=== PATIENT | female | born 1990 | race Asian ===

== ENCOUNTER 2021-05-20 04:39 | Inpatient (IN) ==
[2021-05-20] MEDS ORDERED: OXYTOCIN 30 UNITS/500 ML BAG IV PRN ×3 (05:34→15:18)
[2021-05-20] MEDS ORDERED: ePHEDrine sulfate 50 MG/ML AMP ONE (05:46)
[2021-05-20] MEDS ORDERED: SODIUM CHLORIDE 0.9% INJ 10 ML VIAL ONE (05:46)
[2021-05-20] MEDS ORDERED: BUPIVACAINE 0.25% 30 ML VIAL ONE (05:46)
[2021-05-20] MEDS ORDERED: fentaNYL citrate 100 MCG/2 ML VIAL ONE (05:46)
[2021-05-20] MEDS ORDERED: fentaNYL 2MCG/ML ROPIVACAINE 1.25MG/ML 100 ML BAG EPI ONE (05:47)
[2021-05-20] MEDS: LACTATED RINGER'S 1,000 ML IV PRN ×2 (06:00→07:04)
[2021-05-20 06:05] LABS: Hematocrit (blood only) 40.9 % (37-47); Hemoglobin 13.9 g/dL (12.0-16.0); Mean Corpuscular Hemoglobin 29.8 pg (25-34); Mean Corpuscular Volume 87.6 fL (80-100); Mean Platelet Volume 11.7 fL (7.4-10.4); Platelet Count 172 K/uL (130-400); RDW Coefficient of Variation 13.7 % (11.5-14.5); RDW Standard Deviation 43.8 fL (36.4-46.3); Red Blood Count 4.67 M/uL (4.2-5.4); White Blood Count 16.73 K/uL (4.8-10.8)
--- NOTE | 2021-05-20 07:21 | Anesthesiology Consultation ---
Date of Service May 20, 2021 Assessment & Plan Chart Review Chart Review: Patient NOT seen in Pre Admission Testing and Acceptable Risk for Labor Epidural Consults Requested none Proposed Anesthesia Risk / Benefits Reviewed With: PT / POA / Parent / Guardian, Accepts Plan and Informed Consent Obtained History Height/Weight Height: 5 ft 4 in Weight: 73.482 kg Allergies Allergy/AdvReac Type Severity Reaction Status Date / Time No Known Allergies Allergy Verified 05/20/21 05:03 Medications Home Medications Medication Instructions Recorded Confirmed Last Taken prenat.vits,louie,snc-ksbe-jpakh 1 tab PO DAILY 09/30/20 05/20/21 05/19/21 acetone (urine) test (Ketone Urine #50 ea 03/27/21 05/15/21 Unknown Test) blood sugar diagnostic (OneTouch #150 ea 03/27/21 05/15/21 Unknown Verio test strips) blood-glucose meter (OneTouch #1 ea 03/27/21 05/15/21 Unknown Verio Flex meter) lancets 33 gauge (OneTouch Delica #150 ea 03/27/21 05/15/21 Unknown Plus Lancet) Active Medications Generic Name Dose Route Start Last Admin Trade Name Freq PRN Reason Stop Dose Admin Lactated Ringer's 1,000 mls @ 125 mls/hr 05/20/21 05:34 05/20/21 07:04 Lr IV 05/22/21 05:33 125 mls/hr .Q8H PRN Administration L&D Protocol Protocol Past Medical History Medical History (Updated 05/20/21 @ 04:43 by Ada Howell RN) History of pituitary tumor was taking cabergoline - stopped with positive preg test follows with tom elam Past Family History Family History (Updated 09/30/20 @ 13:17 by Vanessa Mcneal, LUCILA) Mother Hypertension Father , age 38 Stomach cancer Colorectal cancer Brother Congenital heart disease Denies family history of Ovarian cancer Breast cancer Past Surgical History Surgical History (Updated 09/30/20 @ 13:48 by Vanessa Mcneal, RN) No pertinent past surgical history Social History Smoking Status: Never smoker Hx Alcohol Use: Yes Hx Substance Use: No Physical Exam Vital Signs Last Vital Signs Temp 36.6 C 05/20/21 05:06 Pulse 82 05/20/21 07:19 Resp 18 05/20/21 05:06 BP 101/60 05/20/21 07:19 Pulse Ox 100 05/20/21 07:19 Testing Laboratory Results 05/20/21 05:43
[2021-05-20] MEDS ORDERED: NALBUPHINE HCL INJ 10 MG/ML AMP IV PRN (07:31)
[2021-05-20] MEDS ORDERED: diphenhydrAMINE 50 MG/ML VIAL IV PRN (07:31)
[2021-05-20] MEDS ORDERED: NALOXONE HCL 1 MG in SODIUM CHLORIDE 0.9% 1000ML 1,000 ML IV PRN (07:31)
[2021-05-20] MEDS ORDERED: fentaNYL 2MCG/ML ROPIVACAINE 1.25MG/ML 100 ML BAG EPI PRN (07:31)
[2021-05-20] MEDS ORDERED: NALOXONE HCL 0.4 MG/1 ML VIAL/CARP IV PRN (07:31)
[2021-05-20] MEDS ORDERED: ePHEDrine sulfate 50 MG/ML AMP IV PRN (07:31)
--- NOTE | 2021-05-20 08:51 | Labor Progress Brief Note ---
Date of Service May 20, 2021 Subjective Comfortable w/ epidural. Admitted overnight by provider communications billing analyst for labor, aware that I am now taking over Assessment & Plan (1) : Plan: 31 y/o G1 at 38 4/7 wga admitted in labor VSS Fetus cat 1 Labor - nice progression, now s/p arom GBS neg Epidural in place Physical Exam Genitourinary: Manual OB Exam: + cervical dilation (5-6), + cervical effacement 90%, + station -1 and + amniotic fluid (AROM clear ) OB Exam Monitor Tracing: + external FHT monitor used, + external uterine monitor used (q5) and + category I (145/mod/+accel/-decel) Results & Data ([facility]) Vital Signs (Past 12 Hours) Vital Signs Temp Pulse Resp BP Pulse Ox 05/20/21 08:44 96 H 100 05/20/21 08:39 94 H 100 05/20/21 08:37 91 H 122/70 05/20/21 08:34 96 H 99 05/20/21 08:29 104 H 100 05/20/21 08:24 99 H 100 05/20/21 08:20 20 05/20/21 08:19 94 H 100 05/20/21 08:15 96 H 132/90 05/20/21 08:14 99 H 100 05/20/21 08:10 90 100/60 05/20/21 08:09 97 H 100 05/20/21 08:05 20 05/20/21 08:04 84 103/57 L 98 05/20/21 07:59 84 104/55 L 99 05/20/21 07:55 80 103/59 L 05/20/21 07:54 82 99 05/20/21 07:50 20 05/20/21 07:49 91 H 100/57 L 100 05/20/21 07:45 80 99/61 L 05/20/21 07:44 82 99 05/20/21 07:40 81 106/74 05/20/21 07:39 99 H 99 05/20/21 07:35 20 05/20/21 07:34 89 101/59 L 99 05/20/21 07:30 83 105/59 L 05/20/21 07:29 92 H 99 05/20/21 07:24 85 99 05/20/21 07:23 88 97/56 L 05/20/21 07:21 88 99/59 L 05/20/21 07:20 98.1 F 20 05/20/21 07:19 82 101/60 100 05/20/21 07:18 76 91/55 L 05/20/21 07:16 78 90/60 L 05/20/21 07:14 80 98/54 L 99 05/20/21 07:12 84 108/53 L 05/20/21 07:10 89 113/61 05/20/21 07:09 76 98 05/20/21 07:07 82 110/64 05/20/21 07:04 88 100 05/20/21 06:59 89 100 05/20/21 06:54 87 100 05/20/21 06:50 100 H 124/81 05/20/21 06:49 101 H 99 05/20/21 06:44 80 100 05/20/21 05:06 97.9 F 18 05/20/21 04:59 97.9 F 77 18 112/71 Coding Level of Care Code None Diagnoses Z34.90
--- NOTE | 2021-05-20 11:06 | Labor Progress Brief Note ---
Date of Service May 20, 2021 Subjective Comfortable with epidural, ctx some what spaced out Assessment & Plan (1) : Plan: 31 y/o G1 at 38 4/7 wga admitted in labor VSS Fetus cat 1 Labor - nice progression even despite irregularity of ctx. Discussed starting pit just to make more regular when pushing and pt amenable GBS neg Epidural in place Admission and Anticipated Discharge Date Admission Date: May 20, 2021 Physical Exam Genitourinary: Manual OB Exam: + cervical dilation 8 cm, + cervical effacement 90% and + station 0 OB Exam Monitor Tracing: + external FHT monitor used, + external uterine monitor used (q2-6) and + category I (145/mod/+accel/-decel) Results & Data ([facility]) Vital Signs (Past 12 Hours) Vital Signs Temp Pulse Resp BP Pulse Ox 05/20/21 10:59 87 100 05/20/21 10:54 92 H 100 05/20/21 10:49 94 H 98/58 L 97 05/20/21 10:44 90 100 05/20/21 10:39 86 100 05/20/21 10:34 88 104/62 100 05/20/21 10:29 88 99 05/20/21 10:24 87 100 05/20/21 10:19 89 100/59 L 100 05/20/21 10:14 87 100 05/20/21 10:09 87 100 05/20/21 10:06 90 103/56 L 05/20/21 10:05 98.8 F 20 05/20/21 10:04 91 H 100 05/20/21 09:59 84 100 05/20/21 09:54 85 100 05/20/21 09:50 20 05/20/21 09:49 102 H 105/67 99 05/20/21 09:44 94 H 100 05/20/21 09:39 97 H 99 05/20/21 09:35 89 20 116/74 05/20/21 09:34 93 H 99 05/20/21 09:29 91 H 99 05/20/21 09:24 95 H 99 05/20/21 09:20 20 05/20/21 09:19 95 H 119/85 100 05/20/21 09:14 98 H 99 05/20/21 09:09 103 H 100 05/20/21 09:05 20 05/20/21 09:04 92 H 115/81 99 05/20/21 08:59 91 H 100 05/20/21 08:54 94 H 100 05/20/21 08:50 98.6 F 20 05/20/21 08:49 93 H 125/79 100 05/20/21 08:44 96 H 100 05/20/21 08:39 94 H 100 05/20/21 08:37 91 H 122/70 05/20/21 08:35 20 05/20/21 08:34 96 H 99 05/20/21 08:29 104 H 100 05/20/21 08:24 99 H 100 05/20/21 08:20 20 05/20/21 08:19 94 H 100 05/20/21 08:15 96 H 132/90 05/20/21 08:14 99 H 100 05/20/21 08:10 90 100/60 05/20/21 08:09 97 H 100 05/20/21 08:05 20 05/20/21 08:04 84 103/57 L 98 05/20/21 07:59 84 104/55 L 99 05/20/21 07:55 80 103/59 L 05/20/21 07:54 82 99 05/20/21 07:50 20 05/20/21 07:49 91 H 100/57 L 100 05/20/21 07:45 80 99/61 L 05/20/21 07:44 82 99 05/20/21 07:40 81 106/74 05/20/21 07:39 99 H 99 05/20/21 07:35 20 05/20/21 07:34 89 101/59 L 99 05/20/21 07:30 83 105/59 L 05/20/21 07:29 92 H 99 05/20/21 07:24 85 99 05/20/21 07:23 88 97/56 L 05/20/21 07:21 88 99/59 L 05/20/21 07:20 98.1 F 20 05/20/21 07:19 82 101/60 100 05/20/21 07:18 76 91/55 L 05/20/21 07:16 78 90/60 L 05/20/21 07:14 80 98/54 L 99 05/20/21 07:12 84 108/53 L 05/20/21 07:10 89 113/61 05/20/21 07:09 76 98 05/20/21 07:07 82 110/64 05/20/21 07:04 88 100 05/20/21 06:59 89 100 05/20/21 06:54 87 100 05/20/21 06:50 100 H 124/81 05/20/21 06:49 101 H 99 05/20/21 06:44 80 100 05/20/21 05:06 97.9 F 18 05/20/21 04:59 97.9 F 77 18 112/71 Coding Level of Care Code None Diagnoses Z34.90
--- NOTE | 2021-05-20 15:14 | Delivery Summary ---
Vaginal Delivery Summary Date of Service May 20, 2021 Vaginal Delivery Summary (vaginal, periurethral, and labial tear) PREOPERATIVE DIAGNOSIS: 1. Single intrauterine at 38 4/7 weeks gestation 2. Labor 3. A1GDM 4. History of microprolactinoma POSTOPERATIVE DIAGNOSIS: 1. Single intrauterine at 38 4/7 weeks gestation 2. Labor 3. A1GDM 4. History of microprolactinoma 5. Delivered PROCEDURE: 1. Normal spontaneous vaginal delivery. SURGEON: Aiyana Childers MD ANESTHESIA: Epidural. ESTIMATED BLOOD LOSS: 400 mL FLUIDS: Continuous LR. URINE OUTPUT: None. COMPLICATIONS: None. CONDITION: Stable. INDICATIONS: 31 y/o G1 at 38 4/7 wga presented this morning with contractions. She was found to be 4-5cm and admitted. She received an epidural for pain control and then underwent arom. She progressed well spontaneously despite contractions spaced apart and so oxytocin was started to help with more regular contractions. She then progressed to complete and desired to push FINDINGS: A viable male infant, weight pending with Apgars of 8 and 9 at 1 and 5 minutes respectively. SPECIMEN: Cord blood OPERATIVE REPORT: The patient progressed to 10 cm, 100% effaced and +2 station, pushed over intact perineum with anesthesia to deliver a viable male infant, weight and Apgars as above. Head of delivered in RIVERA position. No nuchal cord was present. Body and shoulders were delivered without difficulty. was delivered to maternal abdomen and nursing staff. Delayed cord clamping was performed for 60 seconds. Cord was clamped and cut. Cord blood was obtained. Placenta delivered spontaneously intact with 3-vessel cord. IV oxytocin and fundal massage were given for excellent hemostasis. Vagina, cervix, perineum, and placenta were inspected. A right vaginal tear was repaired in the usual fashion using 3-0 Vicryl. A right periurethral tear was noted and repaired using 4-0 Vicryl. Due to location of tear, sales catheter was placed prophylactically for the next 24 hours. A right labial tear was repaired using 4-0 vicryl. There was excellent hemostasis. It is noted majority of EBL was from the tears themselves. Sponge and needle counts correct x2. No sponges were left behind. Mother and stable in immediate period. [facility] [place] Vaginal Delivery Charge Vaginal Delivery Codes: 55132 global code for the antepartum, delivery, and post- Delivery Type Details: (vaginal, periurethral, and labial tear)
[2021-05-20] MEDS ORDERED: BENZOCAINE 20% AER SPR 82.5 GM CAN EXT PRN (15:18)
[2021-05-20] MEDS ORDERED: HYDROCORTISONE ACETATE 25 MG SUPP PR PRN (15:18)
[2021-05-20] MEDS ORDERED: SUPERCREAM 0.870% 15 GM JAR EXT PRN (15:18)
[2021-05-20] MEDS ORDERED: ACETAMINOPHEN 325 MG TAB PO PRN (15:18)
[2021-05-20] MEDS ORDERED: bisacodyL 10 MG SUPP PR PRN (15:18)
[2021-05-20] MEDS ORDERED: DIPHTHERIA/TETANUS/PERTUSSIS 0.5 ML SYR/VIAL IM ONE (15:18)
--- NOTE | 2021-05-20 17:19 | Anesthesia Procedure Note ---
Date of Service May 20, 2021 Anesthesia Post Epidural Note Vital Signs Vital Signs: Temp Pulse Resp BP Pulse Ox 37.0 C 118 H 20 110/59 L 98 05/20/21 16:04 05/20/21 17:04 05/20/21 16:34 05/20/21 17:04 05/20/21 14:29 Notes Mental Status: alert / awake / arousable and participated in evaluation Nausea / Vomiting: adequately controlled Pain: adequately controlled Airway Patency, RR, SpO2: stable & adequate BP & HR: stable & adequate Hydration State: stable & adequate Neuraxial Anesthesia: was administered and sensory block is resolving Anesthetic Complications: no major complications apparent, see Notes below and Pt Satisfied with anesthetic care Epidural: Removed without complications and With tip intact Notes: At this time, pt denies headache and is sitting up comfortably. Neuraxial block is resolving. Epidural site clean, dry and intact. No signs of edema, erythema or bruising at insertion site. Pt instructed to request anesthesia if she has residual lower extremity numbness or if she develops lower extremity pain or weakness, back pain or headache.
[2021-05-20] MEDS: IBUPROFEN 600 MG TAB PO PRN ×2 (18:01→22:03)
--- NOTE | 2021-05-20 21:58 | Anesthesiology Consultation ---
Date of Service May 20, 2021 Assessment & Plan Chart Review Chart Review: Acceptable Risk for Surgery Consults Requested none History Height/Weight Height: 5 ft 4 in Weight: 73.482 kg Allergies Allergy/AdvReac Type Severity Reaction Status Date / Time No Known Allergies Allergy Verified 05/20/21 05:03 Medications Home Medications Medication Instructions Recorded Confirmed Last Taken prenat.vits,louie,ntg-[id number]-kwpzq 1 tab PO DAILY 09/30/20 05/20/21 05/19/21 acetone (urine) test (Ketone Urine #50 ea 03/27/21 05/15/21 Unknown Test) blood sugar diagnostic (OneTouch #150 ea 03/27/21 05/15/21 Unknown Verio test strips) blood-glucose meter (OneTouch #1 ea 03/27/21 05/15/21 Unknown Verio Flex meter) lancets 33 gauge (OneTouch Delica #150 ea 03/27/21 05/15/21 Unknown Plus Lancet) Active Medications Generic Name Dose Route Start Last Admin Trade Name Freq PRN Reason Stop Dose Admin Benzocaine 1 appln 05/20/21 15:18 05/20/21 18:02 Benzocaine 20% Aer Spr 82.5 Gm Can EXT 06/19/21 15:17 1 appln PRN PRN Administration Perineal Discomfort Lactated Ringer's 1,000 mls @ 125 mls/hr 05/20/21 05:34 05/20/21 14:33 Lr IV 05/22/21 05:33 Infused .Q8H PRN Infusion L&D Protocol Protocol Ibuprofen 600 mg 05/20/21 15:18 05/20/21 18:01 Ibuprofen 600 Mg Tab PO 06/19/21 15:17 600 mg Q4H PRN Administration Pain/BHARDWAJ/Cramping/Fever NPO Date Last Intake of Fluids: 05/20/21 Time Last Intake of Fluids: 06:30 Date Last Intake of Solids: 05/19/21 Time Last Intake of Solids: 22:00 Past Medical History Medical History (Updated 05/20/21 @ 08:49 by Aiyana Childers MD) History of pituitary tumor was taking cabergoline - stopped with positive preg test follows with tom elam Past Family History Family History (Updated 09/30/20 @ 13:17 by Vanessa Mcneal RN) Mother Hypertension Father , age 38 Stomach cancer Colorectal cancer Brother Congenital heart disease Denies family history of Ovarian cancer Breast cancer Past Surgical History Surgical History (Updated 09/30/20 @ 13:48 by Vanessa Mcneal RN) No pertinent past surgical history Social History Smoking Status: Never smoker Hx Alcohol Use: Yes Hx Substance Use: No Physical Exam Vital Signs Last Vital Signs Temp 37.0 C 05/20/21 17:04 Pulse 114 H 05/20/21 17:19 Resp 20 05/20/21 17:04 BP 114/58 L 05/20/21 17:19 Pulse Ox 98 05/20/21 14:29 Testing Laboratory Results 05/20/21 05:43 05/20/21 09:56 POC Glucose 75
[2021-05-20] MEDS: DOCUSATE SODIUM 100 MG CAP PO SCH (22:02)
--- NOTE | 2021-05-21 00:01 | Communication Note ---
Date of Service: May 20, 2021 Visited pt earlier this evening to discuss inadvertent dural puncture which occurred this morning during attempted placement of labor epidural catheter. I told pt that dural puncture is a known risk of epidural placement and can lead to headache. I told her that if symptoms result, they range from mild to severe, are treatable, and nearly always completely resolve. She should notify us if headache develops. Pt expressed understanding, questions answered.
[2021-05-21] MEDS: IBUPROFEN 600 MG TAB PO PRN ×4 (03:23→20:11)
[2021-05-21 07:09] LABS: Hematocrit (blood only) 31.1 % (37-47); Hemoglobin 10.4 g/dL (12.0-16.0); Mean Corpuscular Hemoglobin 29.5 pg (25-34); Mean Corpuscular Hgb Conc 33.4 g/dL (32-36); Mean Corpuscular Volume 88.1 fL (80-100); Mean Platelet Volume 11.1 fL (7.4-10.4); Platelet Count 125 K/uL (130-400); RDW Coefficient of Variation 13.8 % (11.5-14.5); RDW Standard Deviation 44.4 fL (36.4-46.3); Red Blood Count 3.53 M/uL (4.2-5.4); White Blood Count 19.21 K/uL (4.8-10.8)
--- NOTE | 2021-05-21 07:54 | Obstetrical Progress Note ---
Date of Service May 21, 2021 Assessment & Plan (1) state: 31 yo PP1 from , doing well -Meeting all pp milestones with sales in place, placed due to location of tear so close to urethra. Will remove today and make sure can void -B+/rubella immune/ -f/u 6 weeks for appt, plan for d/c tomorow Subjective Ambulation: ambulating normally Voiding: sales catheter in place Passing Gas:: Yes Diet Tolerance:: regular diet Lochia:: Moderate Feeding Type:: breast feeding Pain well managed with medication Review of Systems Denies fevers, chills, n/v, BHARDWAJ, CP, SOB Physical Exam Constitutional WD/WN, vitals as above no acute distress Respiratory normal respiratory effort, lungs clear to auscultation Cardiovascular RRR, no murmur, no edema Gastrointestinal (Abdomen) Percussion/Palpation: abdomen soft; abdomen nontender fundus firm at umbilicus and NT Musculoskeletal BLE symmetric, nonerythematous, nontender Results & Data ([facility]) Vital Signs (Past 12 Hours) Vital Signs Temp Pulse Resp BP Pulse Ox 05/21/21 03:50 98.2 F 90 18 100/64 98 05/20/21 23:20 98.4 F 84 18 104/69 99
[2021-05-21] MEDS: FERROUS SULFATE 325 MG TAB PO SCH (08:15)
[2021-05-21] MEDS: DOCUSATE SODIUM 100 MG CAP PO SCH ×2 (08:15→20:11)
[2021-05-21] MEDS: PRENATAL VITAMIN 1 TAB PO SCH (08:15)
[2021-05-21] MEDS ORDERED: bisacodyL 5 MG TABEC PO SCH (20:00)
[2021-05-22] MEDS: IBUPROFEN 600 MG TAB PO PRN ×2 (00:53→07:18)
--- NOTE | 2021-05-22 06:06 | Obstetrical Progress Note ---
Date of Service <Vadim Ahmadi DO - Last Filed: 05/22/21 07:18> May 22, 2021 Assessment & Plan <Vadim Ahmadi DO - Last Filed: 05/22/21 07:18> (1) Encounter for care and examination after delivery: 31 yo post day 1 from vaginal delivery, doing well. -Continue routine post care. - vital signs reviewed and WNL. (Tmax 37.4) -Blood type B+, GBS -, Rubella Immune -Encourage ambulation, recommended to monitor and control pain with Motrin, tylenol PRN. -encourage breast feeding -hemoglobin 10.4 -Discussed discharge with patient. Patient will follow up with OB outpatient in 6 weeks. <Aiyana Childers MD - Last Filed: 05/22/21 07:30> (1) Encounter for care and examination after delivery: Subjective <Vadim Ahmadi DO - Last Filed: 05/22/21 07:18> Ambulation: ambulating normally Voiding: no voiding problems Passing Gas:: Yes Diet Tolerance:: regular diet Lochia:: Small Feeding Type:: breast feeding Current Pain Level(1-10): 0 Review of Systems Denies fever, chills, sweats Denies shortness of breath, difficulty breathing, chest pain, palpitations, chest pressure. Denies breast pain. Denies dysuria. Denies headache or changes in vision Physical Exam <Vadim Ahmadi DO - Last Filed: 05/22/21 07:18> General: Alert, oriented. No acute distress. Cardiac: Regular rate and rhythm, no murmurs/rubs/gallops. Respiratory: Clear to auscultation bilaterally a/p, no wheezes/rales/rhonchi. No increased work of breathing. Symmetrical chest rise. No respiratory distress. Abdomen: Soft, nontender, nondistended. Bowel sounds present. Uterus: Uterine fundus firm, palpable 1 cm below umbilicus. Lower Extremities: No lower extremity edema or swelling. No deep calf pain. Gail's negative bilaterally Results & Data ([facility]) <Vadim Ahmadi DO - Last Filed: 05/22/21 07:18> Vital Signs (Past 12 Hours) Vital Signs Temp Pulse Resp BP Pulse Ox 05/21/21 23:45 36.6 C 80 18 115/66 98 <Aiyana Childers MD - Last Filed: 05/22/21 07:30> Co-Signing Physician Notes Resident Physician Supervision Note: I interviewed and examined the patient. Discussed with Dr. Ahmadi and agree with findings and plan as documented in the note. Any exceptions or clarifications are listed here: PP2 s/p , doing well. VSS, exam benign and wnl. Denies s/s of wet tap that was noted by Dr. Pierre. Stable for d/c home today Documented By: Aiyana Childers MD Resident Activity Tracking <Vadim Ahmadi DO - Last Filed: 05/22/21 07:18> Resident Involvement: Resident Care Provided Care Provided: OB Delivery
[2021-05-22] MEDS: FERROUS SULFATE 325 MG TAB PO SCH (07:21)
[2021-05-22] MEDS: DOCUSATE SODIUM 100 MG CAP PO SCH (07:21)
[2021-05-22] MEDS: PRENATAL VITAMIN 1 TAB PO SCH (07:21)
== END 2021-05-22 14:20 | disposition home or self-care (01) | DRG 806 ==
LOC: OPB 04:39 → 4S1 04:41 → 4S2 17:45